=== PATIENT | female | born 2000 | race Caucasian/White ===

== ENCOUNTER 2018-05-14 00:08 | Emergency (ER) | payer OTHER ==
[~2018-05-14] VITALS: Ht 167.6 cm; Wt 96.6 kg
[~2018-05-14 00:08] MED LIST: BIRTH CONTROL PILL; SERTRALINE HCL50 MG PO; VYVANSE20 MG PO
[2018-05-14 00:48] LABS: ABSOLUTE EOSINOPHILS 0.1 thou/uL (0.0-0.7); ABSOLUTE LYMPHOCYTES 1.7 thou/uL (0.8-5.3); ABSOLUTE MONOCYTES 0.6 thou/uL (0.0-1.2); ABSOLUTE NEUTROPHILS 4.6 thou/uL (1.6-8.1); BASOPHILS 0.4 %; EOSINOPHILS 0.9 %; HEMATOCRIT 38.3 % (37.0-47.0); HEMOGLOBIN 12.6 gm/dL (12.0-15.0); LYMPHOCYTES 24.7 %; MCH 27.6 pg (26.0-34.0); MCHC 32.9 g/dL (28.0-37.0); MONOCYTES 9.1 %; MPV 6.8 fl. (7.2-11.1); NUCLEATED RBCS 0 /100WBC; PLATELET COUNT* 270 thou/uL (150-400); POLYS 64.9 %; RBC 4.56 mil/uL (4.20-5.00); RDW-CV 14.1 % (10.5-14.5); WBC 7.1 thou/uL (4.0-11.0)
[2018-05-14 00:53] LABS: CALCIUM 8.6 mg/dL (8.5-10.1); CREATININE 0.8 mg/dL (0.6-1.3); POTASSIUM 3.9 mmol/L (3.5-5.1)
[2018-05-14 00:58] LABS: ALBUMIN 3.5 g/dL (3.4-5.0); TOTAL BILIRUBIN 0.2 mg/dL (<0.1-1.0); TOTAL PROTEIN 7.6 g/dL (6.4-8.2)
[2018-05-14 02:42] VITALS: BP 113/66
== END 2018-05-14 02:43 | disposition home or self-care (01) ==
LOC: M.ERS 00:08
PROVIDERS: Emergency Medicine
DX: R51 Headache (principal); M54.2 Cervicalgia; F98.8 Other specified behavioral and emotional disorders with onset usually occurring in childhood and adolescence

== ENCOUNTER 2019-06-12 20:56 | Emergency (ER) | payer OTHER ==
[~2019-06-12] VITALS: Ht 167.6 cm; Wt 113.4 kg
[2019-06-12 21:00] VITALS: BP 107/52
[2019-06-12] MEDS ORDERED: IBUPROFEN 800800 M1 PO (21:31)
== END 2019-06-12 21:55 | disposition home or self-care (01) ==
LOC: M.ERS 20:56
DX: M76.72 Peroneal tendinitis, left leg (principal); F90.9 Attention-deficit hyperactivity disorder, unspecified type

== ENCOUNTER 2020-06-18 00:51 | Inpatient (IN) | payer OTHER ==
[~2020-06-18] VITALS: Ht 167.6 cm; Wt 113.0 kg
[2020-06-18] VITALS (17 sets, daily range): BP systolic 76–1130; BP diastolic 38–79
[~2020-06-18 00:51] MED LIST changes: +IBUPROFEN 800800 M1 PO
[2020-06-18 01:34] LABS: URINE BLOOD NEGATIVE (Negative); URINE CLARITY CLEAR; URINE COLOR DARK YELLOW; URINE GLUCOSE-RANDOM NEGATIVE (Negative); URINE KETONES 1+ (Negative); URINE LEUKOCYTES-REFLEX NEGATIVE (Negative); URINE NITRITE-REFLEX NEGATIVE (Negative); URINE PROTEIN TRACE (Negative); URINE SPECIFIC GRAVITY 1.025 (1.005-1.030); URINE UROBILINOGEN 0.2 E.U./dl (0.2-1.0)
[2020-06-18 01:36] LABS: URINE BILIRUBIN 1+ (Negative)
[2020-06-18 01:39] LABS: ICTOTEST (BILI CONFIRMATORY) Negative (Negative)
[2020-06-18 01:42] LABS: AMP/METHAMP Negative (Negative); BARBITURATES Negative (Negative); BENZODIAZEPINES Negative (Negative); COCAINE Negative (Negative); METHADONE Negative (Negative); OPIATES Negative (Negative); PCP Negative (Negative); THC Negative (Negative)
[2020-06-18 02:18] LABS: ABSOLUTE LYMPHOCYTES 2.5 thou/uL (0.8-5.3); ABSOLUTE MONOCYTES 0.6 thou/uL (0.0-1.2); ABSOLUTE NEUTROPHILS 6.2 thou/uL (1.6-8.1); BASOPHILS 0.3 %; EOSINOPHILS 0.2 %; HEMOGLOBIN 13.7 gm/dL (12.0-15.0); LYMPHOCYTES 26.7 %; MCH 28.7 pg (26.0-34.0); MCHC 34.2 g/dL (28.0-37.0); MONOCYTES 6.5 %; MPV 7.1 fl. (7.2-11.1); NUCLEATED RBCS 0 /100WBC; PLATELET COUNT* 244 thou/uL (150-400); POLYS 66.3 %; RBC 4.76 mil/uL (4.20-5.00); RDW-CV 13.9 % (10.5-14.5); WBC 9.3 thou/uL (4.0-11.0)
[2020-06-18 02:26] LABS: CALCIUM 8.2 mg/dL (8.5-10.1)
[2020-06-18 02:30] LABS: ALBUMIN 3.8 g/dL (3.4-5.0); TOTAL BILIRUBIN 0.7 mg/dL (<0.1-1.0); TOTAL PROTEIN 7.4 g/dL (6.4-8.2)
[2020-06-18 02:37] LABS: ACETAMINOPHEN 2 ug/mL (10-30); SALICYLATE < 2.8 mg/dL (2.8-20.0)
[2020-06-18 05:59] LABS: INR 1.1; PROTIME 11.7 Seconds (9.20-11.50)
[2020-06-18 16:14] LABS: ALBUMIN 3.4 g/dL (3.4-5.0); CALCIUM 7.9 mg/dL (8.5-10.1); CREATININE 0.7 mg/dL (0.6-1.3); POTASSIUM 3.4 mmol/L (3.5-5.1); TOTAL BILIRUBIN 0.6 mg/dL (<0.1-1.0); TOTAL PROTEIN 6.9 g/dL (6.4-8.2)
[2020-06-19] VITALS (7 sets, daily range): BP systolic 99–131; BP diastolic 58–84
[2020-06-19 04:46] LABS: HEMATOCRIT 36.8 % (37.0-47.0); HEMOGLOBIN 12.6 gm/dL (12.0-15.0); MCH 28.8 pg (26.0-34.0); MCHC 34.3 g/dL (28.0-37.0); MCV 84.2 fL (80.0-100.0); MPV 7.7 fl. (7.2-11.1); RBC 4.37 mil/uL (4.20-5.00); RDW-CV 14.1 % (10.5-14.5); WBC 9.1 thou/uL (4.0-11.0)
[2020-06-19 05:15] LABS: CALCIUM 7.8 mg/dL (8.5-10.1); CREATININE 0.9 mg/dL (0.6-1.3); POTASSIUM 3.5 mmol/L (3.5-5.1); TOTAL BILIRUBIN 0.3 mg/dL (<0.1-1.0)
[2020-06-19 08:20] LABS: SGOT 287 U/L (15-37); SGPT 665 U/L (30-65)
--- NOTE | 2020-06-19 17:38 | EKG ---
[place] [address] ELECTROCARDIOGRAM REPORT Name: CURTISWENDY VENANCIO GORDON Room: [address] ADM IN .R.#: [id number] Admission: 06/18/20 Attend Phys: Aniceto Hobbs Discharge: Date of : 89 Date of Service: 06/18/20 0206 Report #: [id number] THIS REPORT FOR: //name// [facility] ED Test Date: 2020-06-18 Test Time: 02:06:57 Pat Name: WENDY ACEVEDO Department: Room: [facility] Gender: F [employer] Teacher: JEWELL : 2000 Requested By: Glo Rogers Order Number: [id number] MD: Keanu Rodriguez Measurements Intervals [place] Rate: 80 P: 43 MS: 147 QRS: 38 QRSD: 88 T: 13 QT: 376 QTc: 434 Interpretive Statements Sinus rhythm Borderline T abnormalities, anterior leads No previous ECG available for comparison Electronically Signed On 06-19-2020 17:37:52 CDT by Keanu Rodriguez [email or web address] <ELECTRONICALLY SIGNED> By: Keanu Rodriguez MD, [facility] 06/19/20 1737 0206 0206 Keanu Rodriguez MD, [facility] /EPI
[2020-06-20] VITALS (7 sets, daily range): BP systolic 121–143; BP diastolic 63–83
[2020-06-20 02:06] LABS: GLYCOHEMOGLOBIN (HGB A1C) 5.2 % (4.8-5.6)
[2020-06-20 05:03] LABS: HEMATOCRIT 37.4 % (37.0-47.0); HEMOGLOBIN 12.8 gm/dL (12.0-15.0); MCH 28.4 pg (26.0-34.0); MCHC 34.2 g/dL (28.0-37.0); MCV 83.2 fL (80.0-100.0); NUCLEATED RBCS 0 /100WBC; PLATELET COUNT* 239 thou/uL (150-400); RDW-CV 13.9 % (10.5-14.5); WBC 13.2 thou/uL (4.0-11.0)
[2020-06-20 05:24] LABS: ALBUMIN 3.3 g/dL (3.4-5.0); CALCIUM 8.1 mg/dL (8.5-10.1); CREATININE 0.8 mg/dL (0.6-1.3); POTASSIUM 3.5 mmol/L (3.5-5.1); TOTAL BILIRUBIN 0.3 mg/dL (<0.1-1.0); TOTAL PROTEIN 6.7 g/dL (6.4-8.2)
[2020-06-20 05:25] LABS: SGOT 120 U/L (15-37); SGPT 547 U/L (30-65)
[2020-06-20 07:13] LABS: ABSOLUTE LYMPHOCYTES 0.5 thou/uL (0.8-5.3); ABSOLUTE MONOCYTES 0.3 thou/uL (0.0-1.2); ABSOLUTE NEUTROPHILS 12.4 thou/uL (1.6-8.1); PLATELET ESTIMATE ADEQUATE
[2020-06-20] MEDS ORDERED: ZOLOFT50 M1 PO (09:29)
[2020-06-20 13:36] LABS: SGOT 89 U/L (15-37); SGPT 508 U/L (30-65)
[2020-06-20 14:01] LABS: URINE BILIRUBIN NEGATIVE (Negative); URINE BLOOD NEGATIVE (Negative); URINE CLARITY CLEAR; URINE COLOR YELLOW; URINE GLUCOSE-RANDOM TRACE (Negative); URINE KETONES NEGATIVE (Negative); URINE LEUKOCYTES-REFLEX NEGATIVE (Negative); URINE NITRITE-REFLEX NEGATIVE (Negative); URINE PROTEIN NEGATIVE (Negative); URINE UROBILINOGEN 0.2 E.U./dl (0.2-1.0)
[2020-06-21] VITALS: BP 132/74
[2020-06-21 04:34] VITALS: BP 135/85
[2020-06-21 08:00] VITALS: BP 128/71
[2020-06-21 16:00] VITALS: BP 120/75
[2020-06-21 20:00] VITALS: BP 127/64
[2020-06-22 04:00] VITALS: BP 123/64
[2020-06-22 05:32] LABS: ALBUMIN 3.2 g/dL (3.4-5.0); CALCIUM 8.1 mg/dL (8.5-10.1); CREATININE 0.8 mg/dL (0.6-1.3); MAGNESIUM 2.2 mg/dL (1.8-2.4); POTASSIUM 3.9 mmol/L (3.5-5.1); TOTAL BILIRUBIN 0.3 mg/dL (<0.1-1.0); TOTAL PROTEIN 6.5 g/dL (6.4-8.2)
[2020-06-22 08:00] VITALS: BP 122/78
[2020-06-22 17:48] VITALS: BP 111/54
[2020-06-22 20:00] VITALS: BP 126/70
[2020-06-23] VITALS: BP 108/71
[2020-06-23 08:54] LABS: CALCIUM 7.8 mg/dL (8.5-10.1); CREATININE 0.7 mg/dL (0.6-1.3); POTASSIUM 3.5 mmol/L (3.5-5.1); TOTAL BILIRUBIN 0.4 mg/dL (<0.1-1.0); TOTAL PROTEIN 5.9 g/dL (6.4-8.2)
[2020-06-23 11:30] VITALS: BP 115/45
[2020-06-23] MEDS ORDERED: ZOLOFT50 M1 PO (13:57)
[2020-06-23 15:01] VITALS: BP 115/45
== END 2020-06-23 16:15 | disposition home or self-care (01) | DRG 917 ==
LOC: M.ERS 00:51 → M.TBA-ER 02:58 → M.ERS 02:58 → M.ICU 03:18 → M.TBA-ER 03:18 → M.2W 03:18 → M.ICU 07:15 → M.2W 06-19 01:30
PROVIDERS: Emergency Medicine; Internal Medicine; ADMIT Internal Medicine; ATTEND Internal Medicine
DX: T39.1X2A Poisoning by 4-Aminophenol derivatives, intentional self-harm, initial encounter (principal); U07.1 COVID-19; R45.851 Suicidal ideations; T88.6XXA Anaphylactic reaction due to adverse effect of correct drug or medicament properly administered, initial encounter; R65.10 Systemic inflammatory response syndrome (SIRS) of non-infectious origin without acute organ dysfunction; Z68.41 Body mass index [BMI] 40.0-44.9, adult; K71.2 Toxic liver disease with acute hepatitis; F98.8 Other specified behavioral and emotional disorders with onset usually occurring in childhood and adolescence; B34.9 Viral infection, unspecified; F32.9 Major depressive disorder, single episode, unspecified; F41.9 Anxiety disorder, unspecified; E87.6 Hypokalemia; T39.312A Poisoning by propionic acid derivatives, intentional self-harm, initial encounter; E66.01 Morbid (severe) obesity due to excess calories; T48.4X5A Adverse effect of expectorants, initial encounter; Z79.899 Other long term (current) drug therapy; Y92.89 Other specified places as the place of occurrence of the external cause